=== PATIENT | male | born 1960 | race African-American/Black ===

== ENCOUNTER 2018-05-07 13:04 | Inpatient (IN) | payer MEDICAID, OTHER ==
[~2018-05-07] VITALS: Ht 172.7 cm; Wt 120.7 kg
[2018-05-07] MEDS ORDERED: SODIUM CHLORIDE 0.9% 1,000 ML IV ONE (14:29)
[2018-05-07] MEDS ORDERED: ONDANSETRON HCL 4MG/2ML INJ IV STA (14:29)
[2018-05-07 14:45] LABS: HEMATOCRIT. 45.5 % (42.0-52.0); HEMOGLOBIN. 15.5 g/dL (14.0-18.0); MEAN CORPUSCULAR HEMOGLOBIN 32.2 pg (28.0-32.0); MEAN CORPUSCULAR VOLUME 94.6 fL (80.0-94.0); MEAN PLATELET VOLUME 9.6 fl (7.4-10.4); PLATELET 200 x1000/uL (130-400); RED BLOOD CELL COUNT 4.81 mill/uL (4.7-6.1); RED CELL DISTRIBUTION WIDTH 13.9 % (11.6-14.6)
[2018-05-07 14:48] LABS: INR 1.2; PROTHROMBIN TIME 11.6 sec (9.1-11.1)
[2018-05-07 14:53] LABS: CHLORIDE 100 mEq/L (98-107); ETHANOL BLOOD < 10 mg/dL
[2018-05-07 15:19] LABS: CLARITY URINE CLEAR (CLEAR); COLOR URINE YELLOW (YELLOW); KETONES URINE TRACE (NEGATIVE); LEUKOCYTE ESTERASE URINE NEGATIVE (NEGATIVE); NITRITE URINE NEGATIVE (NEGATIVE); OCCULT BLOOD URINE 2+ (NEGATIVE); PH URINE 5.5 (4.5-8.0); PROTEIN URINE 4+ (NEGATIVE); SPECIFIC GRAVITY URINE 1.017 (1.005-1.030); UROBILINOGEN URINE 0.2 E.U./dL (0.2-1.0)
[2018-05-07] MEDS ORDERED: POTASSIUM CHLORIDE 20MEQ TABLET SR PO ONE (15:30)
[2018-05-07] MEDS ORDERED: FAMOTIDINE 20MG/2ML VIAL IV ONE (15:30)
[2018-05-07] MEDS ORDERED: MAGNESIUM/ALUMINUM HYDROXIDE/SIMETHICONE 30ML UDC PO ONE (15:30)
[2018-05-07 15:34] LABS: PLATELET ESTIMATE NORMAL
[2018-05-07 15:45] LABS: *AMPHETAMINES SCREEN URINE NEGATIVE (NEGATIVE); *BARBITURATES SCREEN URINE NEGATIVE (NEGATIVE); *BENZODIAZEPINES SCREEN URINE NEGATIVE (NEGATIVE); *COCAINE SCREEN URINE NEGATIVE (NEGATIVE)
[2018-05-07 15:47] LABS: CANNABINOID URINE SCREEN NEGATIVE (NEGATIVE); METHADONE URINE SCREEN NEGATIVE (NEGATIVE); OPIATES URINE SCREEN NEGATIVE (NEGATIVE); PHENCYCLIDINE URINE SCREEN NEGATIVE (NEGATIVE)
[2018-05-07] MEDS ORDERED: ONDANSETRON HCL 4MG/2ML INJ IV PRN (16:15)
[2018-05-07 16:43] LABS: CREATINE KINASE MB FRACTION 6.4 ng/mL (0.5-3.6); PHOSPHORUS 2.7 mg/dL (2.5-4.9)
[2018-05-07 20:29] VITALS: BP 197/104
[2018-05-07 20:30] VITALS: BP 197/104
[2018-05-07] MEDS ORDERED: POTASSIUM CHLORIDE 20MEQ TABLET SR PO NR (20:49)
[2018-05-07] MEDS ORDERED: MAGNESIUM 4 G PREMIX 100 ML IV NR (22:00)
[2018-05-07] MEDS ORDERED: DEXTROSE 50% WATER 50ML SYRINGE IV PRN (22:00)
[2018-05-07] MEDS ORDERED: CLONIDINE 0.1MG TABLET PO PRN (22:00)
[2018-05-07] MEDS: DEXT 5%/0.45% NACL KCL 20MEQ/L 1,000 ML IV SCH (22:15)
[2018-05-07] MEDS: AMLODIPINE 10MG TABLET PO SCH (22:15)
[2018-05-07] MEDS: PANTOPRAZOLE SODIUM 40 MG/VIAL IV SCH (22:15)
[2018-05-07] MEDS: GABAPENTIN 300MG CAPSULE PO SCH (22:18)
[2018-05-07] MEDS ORDERED: RISO02 MT (23:38)
[2018-05-07] MEDS ORDERED: HYDR-459 MT (23:38)
[2018-05-07] MEDS ORDERED: METF100P3 MC (23:38)
[2018-05-07] MEDS ORDERED: AMLO10TA80 PO (23:38)
[2018-05-07] MEDS ORDERED: FLUO10CA25 MT (23:38)
[2018-05-07] MEDS ORDERED: ASPI-1159 MT (23:38)
[2018-05-07] MEDS ORDERED: ALLO100T MT (23:38)
[2018-05-07] MEDS ORDERED: GABA-531 MT (23:38)
[2018-05-07] MEDS ORDERED: SIMV5TAB53 MT (23:38)
[2018-05-08] VITALS: BP 155/77
[2018-05-08 04:00] VITALS: BP 145/74
[2018-05-08] MEDS: GABAPENTIN 300MG CAPSULE PO SCH ×3 (05:35→22:01)
[2018-05-08] MEDS: BLOOD SUGAR DIAGNOSTIC STRIP TEST SCH ×4 (06:20→21:00)
[2018-05-08] MEDS: INSULIN LISPRO 100 UNITS/ML SUBCUT SCH ×4 (06:20→21:00)
[2018-05-08 07:44] LABS: BASOPHILS % 0.6 % (0.0-2.0); EOSINOPHILS % 2.9 % (0.0-5.0); HEMATOCRIT. 38.2 % (42.0-52.0); HEMOGLOBIN. 13.2 g/dL (14.0-18.0); MEAN CORPUSCULAR HEMOGLOBIN 32.6 pg (28.0-32.0); MEAN CORPUSCULAR VOLUME 94.2 fL (80.0-94.0); MEAN PLATELET VOLUME 9.9 fl (7.4-10.4); MONOCYTES % 9.6 % (2.0-8.0); NEUTROPHILS % 68.9 % (40.0-76.0); PLATELET 185 x1000/uL (130-400); RED BLOOD CELL COUNT 4.06 mill/uL (4.7-6.1); RED CELL DISTRIBUTION WIDTH 13.6 % (11.6-14.6)
[2018-05-08 08:16] VITALS: BP 147/91
[2018-05-08] MEDS: PANTOPRAZOLE SODIUM 40 MG/VIAL IV SCH ×2 (09:36→16:44)
[2018-05-08] MEDS: AMLODIPINE 10MG TABLET PO SCH (09:36)
[2018-05-08] MEDS: FLUOXETINE HCL 20MG CAPSULE PO SCH (09:36)
[2018-05-08 10:03] LABS: T4 FREE 0.94 ng/dL (0.76-1.46)
[2018-05-08] MEDS ORDERED: POTASSIUM CHLORIDE INJ 40 MEQ in DEXT 5% WATER 250 ML IV SCH ×2 (11:00→15:00)
[2018-05-08 11:50] VITALS: BP 148/78
[2018-05-08 16:42] VITALS: BP 128/85
[2018-05-08] MEDS: SUCRALFATE 1 G/10 ML UDC PO SCH ×2 (16:45→22:01)
[2018-05-08 16:48] LABS: CREATINE KINASE MB FRACTION 3.1 ng/mL (0.5-3.6)
[2018-05-08] MEDS: DEXT 5%/0.45% NACL KCL 20MEQ/L 1,000 ML IV SCH (17:45)
[2018-05-08 20:00] VITALS: BP 136/84
[2018-05-08 23:47] LABS: CREATINE KINASE MB FRACTION 2.3 ng/mL (0.5-3.6)
[2018-05-09] VITALS: BP 143/78
[2018-05-09] MEDS: DEXT 5%/0.45% NACL KCL 20MEQ/L 1,000 ML IV SCH ×3 (00:36→15:13)
[2018-05-09 04:00] VITALS: BP 143/71
[2018-05-09] MEDS: GABAPENTIN 300MG CAPSULE PO SCH ×3 (05:49→21:33)
[2018-05-09] MEDS: INSULIN LISPRO 100 UNITS/ML SUBCUT SCH ×4 (06:11→21:00)
[2018-05-09] MEDS: SUCRALFATE 1 G/10 ML UDC PO SCH ×4 (06:11→21:33)
[2018-05-09] MEDS: BLOOD SUGAR DIAGNOSTIC STRIP TEST SCH ×4 (06:11→21:25)
[2018-05-09 07:50] LABS: INR 1.1; PARTIAL THROMBOPLASTIN TIME 25.2 sec (23.4-31.0); PROTHROMBIN TIME 10.7 sec (9.1-11.1)
[2018-05-09 07:58] LABS: BASOPHILS % 0.8 % (0.0-2.0); EOSINOPHILS % 4.8 % (0.0-5.0); HEMOGLOBIN. 12.7 g/dL (14.0-18.0); MEAN CORPUSCULAR HEMOGLOBIN 32.5 pg (28.0-32.0); MEAN CORPUSCULAR VOLUME 94.4 fL (80.0-94.0); MEAN PLATELET VOLUME 10.1 fl (7.4-10.4); MONOCYTES % 7.6 % (2.0-8.0); NEUTROPHILS % 69.8 % (40.0-76.0); PLATELET 187 x1000/uL (130-400); RED BLOOD CELL COUNT 3.92 mill/uL (4.7-6.1); RED CELL DISTRIBUTION WIDTH 13.8 % (11.6-14.6)
[2018-05-09 08:00] VITALS: BP 135/81
[2018-05-09 08:16] LABS: CHLORIDE 99 mEq/L (98-107)
[2018-05-09 08:45] LABS: CREATINE KINASE 316 IU/L (39-308); CREATINE KINASE MB FRACTION 1.9 ng/mL (0.5-3.6)
[2018-05-09] MEDS: AMLODIPINE 10MG TABLET PO SCH (10:09)
[2018-05-09] MEDS: FLUOXETINE HCL 20MG CAPSULE PO SCH (10:09)
[2018-05-09] MEDS: PANTOPRAZOLE SODIUM 40 MG/VIAL IV SCH ×2 (10:09→17:32)
[2018-05-09] MEDS ORDERED: FENTANYL CITRATE/PF 50MCG/ML 2ML VIAL IV ONE (12:17)
[2018-05-09] MEDS ORDERED: MIDAZOLAM HCL 2 MG/2 ML VIAL IV ONE (12:18)
[2018-05-09] MEDS ORDERED: MIDAZOLAM HCL 5 MG/5 ML VIAL ONE (12:24)
[2018-05-09] MEDS ORDERED: FENTANYL CITRATE/PF 50MCG/ML 2ML VIAL ONE (12:24)
[2018-05-09] MEDS ORDERED: POTASSIUM CHLORIDE 20MEQ TABLET SR PO NR (13:00)
[2018-05-09 16:00] VITALS: BP 163/87
[2018-05-09 20:00] VITALS: BP 152/70
[2018-05-10] VITALS: BP_SYST 139; BP_SYST 158; BP_DIAS 76; BP_DIAS 81
[2018-05-10] MEDS: DEXT 5%/0.45% NACL KCL 20MEQ/L 1,000 ML IV SCH ×3 (01:53→23:06)
[2018-05-10 04:00] VITALS: BP 136/90
[2018-05-10] MEDS: GABAPENTIN 300MG CAPSULE PO SCH ×3 (06:31→23:04)
[2018-05-10] MEDS: SUCRALFATE 1 G/10 ML UDC PO SCH ×4 (06:31→20:55)
[2018-05-10] MEDS: BLOOD SUGAR DIAGNOSTIC STRIP TEST SCH ×4 (06:31→20:55)
[2018-05-10] MEDS: INSULIN LISPRO 100 UNITS/ML SUBCUT SCH ×4 (06:33→20:56)
[2018-05-10 07:34] LABS: HEMATOCRIT 38.3 % (42.0-52.0); MEAN CORPUSCULAR HEMOGLOBIN 32.5 pg (28.0-32.0); MEAN CORPUSCULAR VOLUME 95.4 fL (80.0-94.0); PLATELET 168 x1000/uL (130-400); RED BLOOD CELL COUNT 4.01 mill/uL (4.7-6.1); RED CELL DISTRIBUTION WIDTH 13.5 % (11.6-14.6)
[2018-05-10 08:00] VITALS: BP 134/90
[2018-05-10] MEDS: PANTOPRAZOLE SODIUM 40 MG/VIAL IV SCH ×2 (11:07→16:45)
[2018-05-10] MEDS: AMLODIPINE 10MG TABLET PO SCH (11:07)
[2018-05-10] MEDS: FLUOXETINE HCL 20MG CAPSULE PO SCH (11:07)
[2018-05-10] MEDS ORDERED: REGADENOSON 0.4 MG/5 ML IV NR (15:45)
[2018-05-11] MEDS: GABAPENTIN 300MG CAPSULE PO SCH ×3 (05:10→21:03)
[2018-05-11 05:13] VITALS: BP 144/82
[2018-05-11] MEDS: SUCRALFATE 1 G/10 ML UDC PO SCH ×4 (06:33→20:57)
[2018-05-11] MEDS: BLOOD SUGAR DIAGNOSTIC STRIP TEST SCH ×5 (06:39→20:58)
[2018-05-11] MEDS: INSULIN LISPRO 100 UNITS/ML SUBCUT SCH ×4 (06:40→20:58)
[2018-05-11 08:00] VITALS: BP 115/67
[2018-05-11] MEDS: FLUOXETINE HCL 20MG CAPSULE PO SCH ×2 (09:00→09:27)
[2018-05-11] MEDS: PANTOPRAZOLE SODIUM 40 MG/VIAL IV SCH ×2 (09:27→16:37)
[2018-05-11] MEDS: AMLODIPINE 10MG TABLET PO SCH (09:27)
[2018-05-11] MEDS: DEXT 5%/0.45% NACL KCL 20MEQ/L 1,000 ML IV SCH ×2 (10:27→18:00)
[2018-05-11 12:00] VITALS: BP 116/74
[2018-05-11 16:00] VITALS: BP 144/76
[2018-05-11 20:00] VITALS: BP 128/74
[2018-05-12] VITALS: BP 124/68
[2018-05-12] MEDS: DEXT 5%/0.45% NACL KCL 20MEQ/L 1,000 ML IV SCH (03:50)
[2018-05-12 04:00] VITALS: BP 132/64
[2018-05-12] MEDS: GABAPENTIN 300MG CAPSULE PO SCH ×2 (05:28→14:53)
[2018-05-12] MEDS: SUCRALFATE 1 G/10 ML UDC PO SCH ×2 (06:20→12:05)
[2018-05-12] MEDS: BLOOD SUGAR DIAGNOSTIC STRIP TEST SCH ×2 (06:59→12:04)
[2018-05-12] MEDS: INSULIN LISPRO 100 UNITS/ML SUBCUT SCH ×2 (07:00→12:08)
[2018-05-12 07:30] VITALS: BP 171/96
[2018-05-12] MEDS: AMLODIPINE 10MG TABLET PO SCH (08:06)
[2018-05-12] MEDS: PANTOPRAZOLE SODIUM 40 MG/VIAL IV SCH (08:06)
[2018-05-12] MEDS: FLUOXETINE HCL 20MG CAPSULE PO SCH (08:06)
[2018-05-12] MEDS ORDERED: REGADENOSON 0.4 MG/5 ML IV ONE (08:40)
[2018-05-12 12:26] VITALS: BP 158/80
[2018-05-12 13:40] VITALS: BP 158/80
== END 2018-05-12 15:32 | disposition home or self-care (01) | DRG 241 ==
LOC: ER 13:21 → 8WST 15:46 → EDBEDREQ 15:50 → ENRESERV 19:22
PROVIDERS: ADMIT Internal Medicine; ATTEND Internal Medicine
PROC: 0DB78ZX Excision of Stomach, Pylorus, Via Natural or Artificial Opening Endoscopic, Diagnostic (ICD-10-PCS; principal; 2018-05-09 13:00)
DX: K29.71 Gastritis, unspecified, with bleeding (principal); I50.43 Acute on chronic combined systolic (congestive) and diastolic (congestive) heart failure; N17.9 Acute kidney failure, unspecified; E11.22 Type 2 diabetes mellitus with diabetic chronic kidney disease; M62.82 Rhabdomyolysis; E44.1 Mild protein-calorie malnutrition; E83.42 Hypomagnesemia; K29.81 Duodenitis with bleeding; R04.0 Epistaxis; N18.9 Chronic kidney disease, unspecified; E66.9 Obesity, unspecified; D53.9 Nutritional anemia, unspecified; E78.5 Hyperlipidemia, unspecified; E87.6 Hypokalemia; F10.10 Alcohol abuse, uncomplicated; I13.0 Hypertensive heart and chronic kidney disease with heart failure and stage 1 through stage 4 chronic kidney disease, or unspecified chronic kidney disease; K44.9 Diaphragmatic hernia without obstruction or gangrene; N39.0 Urinary tract infection, site not specified; Z79.899 Other long term (current) drug therapy; Z79.82 Long term (current) use of aspirin; Z68.41 Body mass index [BMI] 40.0-44.9, adult
CPT/HCPCS: 36415; 71045; 78452; 78582; 80048; 80061; 80305; 82550; 82553; 82962; 83036; 83735; 83880; 84100; 84439; 84443; 84484; 85027; 85379; 86850; 86900; 88305; 88313; 93005; 93017; 93306; 93970; 96361; 96374; 96375; 99285; A9500; A9558; C9113; G0482; J2250; J2405; J2785; J3010; J3475; J3480; J3490; J7030; J7060

== ENCOUNTER 2019-11-18 10:30 | Inpatient (IN) | payer MEDICAID, OTHER ==
[~2019-11-18] VITALS: Ht 172.7 cm; Wt 92.8 kg
[~2019-11-18 10:30] MED LIST: ALLO100T MT; AMLO10TA80 PO; ASPI-1497 MT; FLUO10CA25 MT; GABA-531 MT; HYDR-459 MT; METF100P3 MC; RISO02 MT; SIMV5TAB58 MT
[2019-11-18 11:56] LABS: HEMATOCRIT. 33.4 % (42.0-52.0); HEMOGLOBIN. 11.4 g/dL (14.0-18.0); MEAN CORPUSCULAR HEMOGLOBIN 30.6 pg (28.0-32.0); MEAN CORPUSCULAR VOLUME 89.8 fL (80.0-94.0); MEAN PLATELET VOLUME 8.9 fl (7.4-10.4); PLATELET 296 x1000/uL (130-400); RED BLOOD CELL COUNT 3.72 mill/uL (4.7-6.1); RED CELL DISTRIBUTION WIDTH 14.4 % (11.6-14.6)
[2019-11-18 12:05] LABS: CHLORIDE 101 mEq/L (98-107)
[2019-11-18 12:10] LABS: ETHANOL BLOOD < 10 mg/dL
[2019-11-18 12:27] LABS: PLATELET ESTIMATE NORMAL
[2019-11-18] MEDS ORDERED: AZITHROMYCIN 500 MG in DEXT 5% WATER 250 ML IV STA (12:30)
[2019-11-18] MEDS ORDERED: PIPERACILLIN/TAZOBACTAM 3.375GM/50ML PREMIX IV NR (12:30)
[2019-11-18] MEDS ORDERED: VANCOMYCIN 1 G PREMIX 200 ML IV SCH (12:45)
[2019-11-18] MEDS ORDERED: ETOMIDATE 2MG/ML 10ML VIAL IV ONE ×2 (12:59→14:00)
[2019-11-18] MEDS ORDERED: VECURONIUM BROMIDE 10 MG/VIAL IV ONE ×2 (12:59→14:00)
[2019-11-18] MEDS ORDERED: PROPOFOL 10MG/ML 100ML 100 ML IV SCH (13:15)
[2019-11-18] MEDS ORDERED: NITROGLYCERIN 50MG PREMIX 250 ML IV SCH (14:15)
[2019-11-18] MEDS: CLONIDINE 0.1MG TABLET NG SCH (14:30)
[2019-11-18 14:34] LABS: CLARITY URINE CLOUDY (CLEAR); COLOR URINE YELLOW (YELLOW); KETONES URINE NEGATIVE (NEGATIVE); LEUKOCYTE ESTERASE URINE TRACE (NEGATIVE); NITRITE URINE NEGATIVE (NEGATIVE); OCCULT BLOOD URINE 2+ (NEGATIVE); PROTEIN URINE 3+ (NEGATIVE); SPECIFIC GRAVITY URINE 1.014 (1.005-1.030); UROBILINOGEN URINE 0.2 E.U./dL (0.2-1.0)
[2019-11-18 15:30] LABS: BG BASE EXCESS -15.5 mmol/L (-2.0-2.0); BG CARBOXYHEMOGLOBIN 0.1 % (0.5-1.5); BG DEOXYHEMOGLOBIN 12.7 % (0.0-5.0); BG FRACTION INSPIRED OXYGEN 100; BG HCO3 ACT 14.3 mmol/L (22.0-26.0); BG METHEMOGLOBIN 0.2 % (0.0-1.5); BG OXYGEN SATURATION 87.3 % (92.0-98.5); BG PCO2 49.9 mmHg (35.0-45.0); BG PH 7.074 (7.350-7.450); BG PO2 67.7 mmHg (75.0-100.0); BG SAMPLE SITE RIGHT RADIAL; BG TIDAL VOLUME(mL) 500 mL; BG VENT MODE VENT - A/C; BG VENT RATE 24 set
[2019-11-18] MEDS: SODIUM CHLORIDE 0.9% 1,000 ML IV SCH (17:10)
[2019-11-18] MEDS ORDERED: ONDANSETRON HCL 4MG/2ML INJ IV PRN (17:15)
[2019-11-18] MEDS ORDERED: AZITHROMYCIN 500 MG in DEXT 5% WATER 250 ML IV SCH (17:15)
[2019-11-18] MEDS ORDERED: PIPERACILLIN/TAZ 3.375G PREMIX 50 ML IV SCH (17:15)
[2019-11-18] MEDS ORDERED: DIPHENHYDRAMINE 50MG/ML VIAL IV PRN (17:15)
[2019-11-18] MEDS ORDERED: ACETAMINOPHEN 650MG SUPP PR PRN (17:15)
[2019-11-18 17:39] LABS: PHOSPHORUS 4.2 mg/dL (2.5-4.9)
[2019-11-18] MEDS ORDERED: ENOXAPARIN 30MG/0.3ML SYR SUBCUT SCH (19:00)
[2019-11-18] MEDS ORDERED: ASPIRIN 300MG SUPP PR ONE (19:30)
[2019-11-18 22:35] LABS: *AMPHETAMINES SCREEN URINE PRESUMTIVE POSITIVE (NEGATIVE); *BARBITURATES SCREEN URINE NEGATIVE (NEGATIVE); *BENZODIAZEPINES SCREEN URINE NEGATIVE (NEGATIVE); *COCAINE SCREEN URINE PRESUMTIVE POSITIVE (NEGATIVE); METHADONE URINE SCREEN NEGATIVE (NEGATIVE); OPIATES URINE SCREEN NEGATIVE (NEGATIVE)
[2019-11-18 22:36] LABS: CANNABINOID URINE SCREEN NEGATIVE (NEGATIVE); PHENCYCLIDINE URINE SCREEN PRESUMTIVE POSITIVE (NEGATIVE)
[2019-11-18 23:30] LABS: BG BASE EXCESS -11.3 mmol/L (-2.0-2.0); BG CARBOXYHEMOGLOBIN 0.2 % (0.5-1.5); BG DEOXYHEMOGLOBIN 1.8 % (0.0-5.0); BG FRACTION INSPIRED OXYGEN 100; BG HCO3 ACT 14.3 mmol/L (22.0-26.0); BG METHEMOGLOBIN 0.4 % (0.0-1.5); BG OXYGEN SATURATION 98.2 % (92.0-98.5); BG OXYHEMOGLOBIN 97.6 % (94.0-97.0); BG PCO2 31.3 mmHg (35.0-45.0); BG PH 7.279 (7.350-7.450); BG PO2 136.8 mmHg (75.0-100.0); BG SAMPLE SITE RIGHT RADIAL; BG TIDAL VOLUME(mL) 550 mL; BG TOTAL HEMOGLOBIN 10.2 g/dL (12.0-18.0); BG VENT MODE VENT - A/C; BG VENT RATE 24 set
[2019-11-19] VITALS (25 sets, daily range): BP systolic 82–173; BP diastolic 51–112
[2019-11-19] MEDS ORDERED: DEXTROSE 50% WATER 50ML SYRINGE IV SCH (01:30)
[2019-11-19] MEDS ORDERED: SODIUM BICARBONATE 8.4% 1 MEQ/ML 50ML SYR IV SCH (02:30)
[2019-11-19 04:22] LABS: HEMATOCRIT. 25.8 % (42.0-52.0); HEMOGLOBIN. 8.7 g/dL (14.0-18.0); MEAN CORPUSCULAR HEMOGLOBIN 30.4 pg (28.0-32.0); MEAN CORPUSCULAR VOLUME 90.1 fL (80.0-94.0); MEAN PLATELET VOLUME 9.2 fl (7.4-10.4); PLATELET 166 x1000/uL (130-400); RED BLOOD CELL COUNT 2.87 mill/uL (4.7-6.1); RED CELL DISTRIBUTION WIDTH 14.2 % (11.6-14.6)
[2019-11-19 05:42] LABS: PLATELET ESTIMATE NORMAL
[2019-11-19] MEDS ORDERED: PHENYLEPHRINE 10 MG in DEXT 5% WATER 249 ML IV PRN (06:45)
[2019-11-19] MEDS ORDERED: SODIUM BICARBONATE 8.4% 1 MEQ/ML 50ML SYR IV ONE (08:15)
[2019-11-19] MEDS ORDERED: PROPOFOL 10MG/ML 100ML 100 ML IV ONE ×2 (08:27→17:11)
[2019-11-19] MEDS ORDERED: MIDAZOLAM HCL 50 MG in DEXTROSE 5% WATER 40 ML IV ONE (08:30)
[2019-11-19 08:44] LABS: BG BASE EXCESS -10.9 mmol/L (-2.0-2.0); BG CARBOXYHEMOGLOBIN 0.3 % (0.5-1.5); BG DEOXYHEMOGLOBIN 1.9 % (0.0-5.0); BG FRACTION INSPIRED OXYGEN 80; BG HCO3 ACT 14.3 mmol/L (22.0-26.0); BG METHEMOGLOBIN 0.2 % (0.0-1.5); BG OXYGEN SATURATION 98.1 % (92.0-98.5); BG OXYHEMOGLOBIN 97.6 % (94.0-97.0); BG PCO2 29.5 mmHg (35.0-45.0); BG PH 7.303 (7.350-7.450); BG PO2 134.6 mmHg (75.0-100.0); BG SAMPLE SITE RIGHT RADIAL; BG TIDAL VOLUME(mL) 550 mL; BG TOTAL HEMOGLOBIN 9.3 g/dL (12.0-18.0); BG VENT MODE VENT - A/C; BG VENT RATE 28 set
[2019-11-19 10:37] LABS: INR 1.3; PARTIAL THROMBOPLASTIN TIME 32.2 sec (23.4-31.0); PROTHROMBIN TIME 14.1 sec (9.6-11.0)
[2019-11-19] MEDS ORDERED: PHENYLEPHRINE 40 MG in DEXT 5% WATER 246 ML IV PRN (17:45)
[2019-11-19] MEDS ORDERED: IPRATROPIUM/ALBUTEROL 0.5-3(2.5)MG/3ML NEB HHN PRN (18:15)
[2019-11-19] MEDS ORDERED: PROPOFOL 10MG/ML 100ML 100 ML IV PRN (18:15)
[2019-11-19] MEDS: PANTOPRAZOLE SODIUM 40 MG/VIAL IV SCH (18:36)
[2019-11-19] MEDS: PIPERACILLIN/TAZOBACTAM 2.25 G in DEXTROSE 5% WATER 50 ML IV SCH (19:57)
[2019-11-19] MEDS: IPRATROPIUM/ALBUTEROL 0.5-3(2.5)MG/3ML NEB HHN SCH (20:35)
[2019-11-19] MEDS: AZITHROMYCIN 500 MG in DEXT 5% WATER 250 ML IV SCH (21:56)
[2019-11-19] MEDS: CLONIDINE 0.1MG TABLET NG SCH (21:56)
[2019-11-19] MEDS: FENTANYL 1,000 MCG in SODIUM CHLORIDE 0.9% 100 ML IV PRN (23:55)
[2019-11-20] VITALS (69 sets, daily range): BP systolic 87–141; BP diastolic 49–92
[2019-11-20] MEDS: SODIUM CHLORIDE 0.9% 1,000 ML IV SCH (01:52)
[2019-11-20] MEDS: IPRATROPIUM/ALBUTEROL 0.5-3(2.5)MG/3ML NEB HHN SCH ×3 (01:55→21:40)
[2019-11-20] MEDS: CLONIDINE 0.1MG TABLET NG SCH ×3 (05:52→22:00)
[2019-11-20 06:28] LABS: HEMATOCRIT. 23.1 % (42.0-52.0); HEMOGLOBIN. 8.1 g/dL (14.0-18.0); MEAN CORPUSCULAR HEMOGLOBIN 31.2 pg (28.0-32.0); MEAN CORPUSCULAR VOLUME 89.2 fL (80.0-94.0); MEAN PLATELET VOLUME 9.4 fl (7.4-10.4); PLATELET 147 x1000/uL (130-400); RED BLOOD CELL COUNT 2.59 mill/uL (4.7-6.1); RED CELL DISTRIBUTION WIDTH 14.4 % (11.6-14.6)
[2019-11-20 07:25] LABS: BG BASE EXCESS -10.3 mmol/L (-2.0-2.0); BG CARBOXYHEMOGLOBIN 0.3 % (0.5-1.5); BG DEOXYHEMOGLOBIN 7.6 % (0.0-5.0); BG HCO3 ACT 14.3 mmol/L (22.0-26.0); BG METHEMOGLOBIN 0.1 % (0.0-1.5); BG OXYGEN SATURATION 92.4 % (92.0-98.5); BG PH 7.341 (7.350-7.450); BG SAMPLE SITE RIGHT RADIAL; BG VENT MODE VENT - A/C
[2019-11-20 07:41] LABS: CORTISOL 49.1 ucg/dL
[2019-11-20 07:42] LABS: HEPATITIS B SURFACE AB 130.8 mIU/mL
[2019-11-20 07:52] LABS: HEPATITIS B SURFACE ANTIGEN NEGATIVE
[2019-11-20 08:02] LABS: CHLORIDE 99 mEq/L (98-107)
[2019-11-20 08:08] LABS: PHOSPHORUS 6.1 mg/dL (2.5-4.9)
[2019-11-20 08:11] LABS: CREATINE KINASE 79 IU/L (39-308)
[2019-11-20 08:11] LABS: BG VENT RATE 28 set
[2019-11-20 08:12] LABS: BG FRACTION INSPIRED OXYGEN 60; BG PEEP (cmH2O) 5 cmH2O
[2019-11-20 08:13] LABS: BG TIDAL VOLUME(mL) 550 mL
[2019-11-20] MEDS: PIPERACILLIN/TAZOBACTAM 2.25 G in DEXTROSE 5% WATER 50 ML IV SCH ×2 (08:15→19:45)
[2019-11-20] MEDS: PANTOPRAZOLE SODIUM 40 MG/VIAL IV SCH (08:16)
[2019-11-20] MEDS ORDERED: LIDOCAINE HCL 1% 20ML VIAL (Pyxis) INJ ONE ×2 (08:21→09:58)
[2019-11-20 08:56] LABS: PLATELET ESTIMATE NORMAL
[2019-11-20] MEDS: SODIUM BICARBONATE 150 MEQ in DEXTROSE 5% WATER 1,000 ML IV SCH (09:27)
[2019-11-20] MEDS ORDERED: SODIUM BICARBONATE 4% (2.4MEQ) 5ML VIAL IV ONE (09:58)
[2019-11-20] MEDS ORDERED: DEXTROSE 50% WATER 50ML SYRINGE IV PRN (10:45)
[2019-11-20] MEDS: BLOOD SUGAR DIAGNOSTIC STRIP TEST SCH ×2 (11:41→17:28)
[2019-11-20] MEDS: INSULIN LISPRO 100 UNITS/ML SUBCUT SCH ×2 (11:41→17:28)
[2019-11-20] MEDS: PROPOFOL 10MG/ML 100ML 100 ML IV PRN (19:37)
[2019-11-20] MEDS: AZITHROMYCIN 500 MG in DEXT 5% WATER 250 ML IV SCH (19:45)
[2019-11-21] VITALS (59 sets, daily range): BP systolic 102–151; BP diastolic 59–98
[2019-11-21] MEDS: BLOOD SUGAR DIAGNOSTIC STRIP TEST SCH ×4 (00:14→17:42)
[2019-11-21] MEDS: FENTANYL 1,000 MCG in SODIUM CHLORIDE 0.9% 100 ML IV PRN (00:18)
[2019-11-21] MEDS: PROPOFOL 10MG/ML 100ML 100 ML IV PRN ×5 (01:17→19:36)
[2019-11-21] MEDS: IPRATROPIUM/ALBUTEROL 0.5-3(2.5)MG/3ML NEB HHN SCH ×4 (02:09→20:00)
[2019-11-21 05:15] LABS: HIV SCREEN 4G Non Reactive (Non Reactive)
[2019-11-21] MEDS: INSULIN LISPRO 100 UNITS/ML SUBCUT SCH ×4 (05:28→17:42)
[2019-11-21 05:52] LABS: HEMATOCRIT. 21.6 % (42.0-52.0); HEMOGLOBIN. 7.3 g/dL (14.0-18.0); MEAN CORPUSCULAR HEMOGLOBIN 29.8 pg (28.0-32.0); MEAN PLATELET VOLUME 9.5 fl (7.4-10.4); PLATELET 155 x1000/uL (130-400); RED BLOOD CELL COUNT 2.45 mill/uL (4.7-6.1); RED CELL DISTRIBUTION WIDTH 14.8 % (11.6-14.6)
[2019-11-21] MEDS: CLONIDINE 0.1MG TABLET NG SCH ×3 (06:19→22:00)
[2019-11-21 06:24] LABS: PHOSPHORUS 4.8 mg/dL (2.5-4.9)
[2019-11-21 08:10] LABS: PLATELET ESTIMATE NORMAL
[2019-11-21] MEDS: PIPERACILLIN/TAZOBACTAM 2.25 G in DEXTROSE 5% WATER 50 ML IV SCH ×2 (09:00→21:13)
[2019-11-21] MEDS: PANTOPRAZOLE SODIUM 40 MG/VIAL IV SCH (09:00)
[2019-11-21] MEDS: SODIUM BICARBONATE 150 MEQ in DEXTROSE 5% WATER 1,000 ML IV SCH (09:11)
[2019-11-21 09:29] LABS: BG BASE EXCESS -0.6 mmol/L (-2.0-2.0); BG CARBOXYHEMOGLOBIN 0.3 % (0.5-1.5); BG FRACTION INSPIRED OXYGEN 60; BG HCO3 ACT 21.6 mmol/L (22.0-26.0); BG METHEMOGLOBIN 0.3 % (0.0-1.5); BG OXYHEMOGLOBIN 98.4 % (94.0-97.0); BG PCO2 25.9 mmHg (35.0-45.0); BG PH 7.539 (7.350-7.450); BG PO2 243.1 mmHg (75.0-100.0); BG SAMPLE SITE RIGHT RADIAL; BG TIDAL VOLUME(mL) 550 mL; BG TOTAL HEMOGLOBIN 7.6 g/dL (12.0-18.0); BG VENT MODE VENT - A/C; BG VENT RATE 28 set
[2019-11-21] MEDS: FUROSEMIDE 100MG/10ML VIAL IVP SCH (13:41)
[2019-11-21 15:21] LABS: BG BASE EXCESS -2.5 mmol/L (-2.0-2.0); BG CARBOXYHEMOGLOBIN 0.3 % (0.5-1.5); BG DEOXYHEMOGLOBIN 1.9 % (0.0-5.0); BG FRACTION INSPIRED OXYGEN 40; BG HCO3 ACT 21.6 mmol/L (22.0-26.0); BG METHEMOGLOBIN 0.3 % (0.0-1.5); BG OXYGEN SATURATION 98.1 % (92.0-98.5); BG OXYHEMOGLOBIN 97.5 % (94.0-97.0); BG PCO2 33.7 mmHg (35.0-45.0); BG PH 7.424 (7.350-7.450); BG PO2 131.8 mmHg (75.0-100.0); BG SAMPLE SITE RIGHT RADIAL; BG TIDAL VOLUME(mL) 500 mL; BG VENT MODE VENT - A/C; BG VENT RATE 20 set
[2019-11-21] MEDS: AZITHROMYCIN 500 MG in DEXT 5% WATER 250 ML IV SCH (19:32)
[2019-11-22] VITALS (49 sets, daily range): BP systolic 97–154; BP diastolic 32–91
[2019-11-22] MEDS: FENTANYL 1,000 MCG in SODIUM CHLORIDE 0.9% 100 ML IV PRN ×2 (00:12→17:00)
[2019-11-22] MEDS: IPRATROPIUM/ALBUTEROL 0.5-3(2.5)MG/3ML NEB HHN SCH ×4 (01:58→20:19)
[2019-11-22] MEDS: PROPOFOL 10MG/ML 100ML 100 ML IV PRN ×6 (04:28→22:22)
[2019-11-22] MEDS: CLONIDINE 0.1MG TABLET NG SCH ×3 (06:00→21:24)
[2019-11-22] MEDS: BLOOD SUGAR DIAGNOSTIC STRIP TEST SCH ×5 (06:05→23:21)
[2019-11-22 07:24] LABS: HEMOGLOBIN. 8.1 g/dL (14.0-18.0); MEAN CORPUSCULAR VOLUME 88.3 fL (80.0-94.0); MEAN PLATELET VOLUME 9.3 fl (7.4-10.4); PLATELET 172 x1000/uL (130-400); RED CELL DISTRIBUTION WIDTH 14.5 % (11.6-14.6)
[2019-11-22 07:25] LABS: PHOSPHORUS 6.6 mg/dL (2.5-4.9)
[2019-11-22] MEDS: PIPERACILLIN/TAZOBACTAM 2.25 G in DEXTROSE 5% WATER 50 ML IV SCH ×2 (08:02→20:18)
[2019-11-22] MEDS: PANTOPRAZOLE SODIUM 40 MG/VIAL IV SCH (08:03)
[2019-11-22] MEDS: FUROSEMIDE 100MG/10ML VIAL IVP SCH (08:03)
[2019-11-22 09:41] LABS: PLATELET ESTIMATE NORMAL
[2019-11-22 09:50] LABS: BG BASE EXCESS -3.2 mmol/L (-2.0-2.0); BG CARBOXYHEMOGLOBIN 0.3 % (0.5-1.5); BG DEOXYHEMOGLOBIN 1.4 % (0.0-5.0); BG FRACTION INSPIRED OXYGEN 40; BG METHEMOGLOBIN 0.3 % (0.0-1.5); BG OXYGEN SATURATION 98.6 % (92.0-98.5); BG PCO2 28.7 mmHg (35.0-45.0); BG PH 7.462 (7.350-7.450); BG PO2 137.1 mmHg (75.0-100.0); BG SAMPLE SITE RIGHT RADIAL; BG TIDAL VOLUME(mL) 550 mL; BG TOTAL HEMOGLOBIN 7.7 g/dL (12.0-18.0); BG VENT MODE VENT - A/C; BG VENT RATE 20 set
[2019-11-22] MEDS: INSULIN LISPRO 100 UNITS/ML SUBCUT SCH ×4 (12:00→23:21)
[2019-11-22] MEDS ORDERED: AZITHROMYCIN 250 MG in DEXT 5% WATER 250 ML IV SCH (20:00)
[2019-11-23] VITALS (38 sets, daily range): BP systolic 104–186; BP diastolic 59–115
[2019-11-23] MEDS: PROPOFOL 10MG/ML 100ML 100 ML IV PRN ×2 (00:44→05:28)
[2019-11-23] MEDS: IPRATROPIUM/ALBUTEROL 0.5-3(2.5)MG/3ML NEB HHN SCH ×4 (02:10→21:04)
[2019-11-23] MEDS: CLONIDINE 0.1MG TABLET NG SCH ×3 (05:27→22:18)
[2019-11-23] MEDS: INSULIN LISPRO 100 UNITS/ML SUBCUT SCH ×3 (05:27→18:00)
[2019-11-23] MEDS: BLOOD SUGAR DIAGNOSTIC STRIP TEST SCH ×3 (05:27→18:35)
[2019-11-23 06:36] LABS: BASOPHILS % 0.4 % (0.0-2.0); EOSINOPHILS % 5.2 % (0.0-5.0); HEMOGLOBIN. 7.8 g/dL (14.0-18.0); LYMPHOCYTES % 14.3 % (20.0-50.0); MEAN CORPUSCULAR HEMOGLOBIN 30.3 pg (28.0-32.0); MEAN CORPUSCULAR VOLUME 88.6 fL (80.0-94.0); MONOCYTES % 10.1 % (2.0-8.0); PLATELET 168 x1000/uL (130-400); RED BLOOD CELL COUNT 2.59 mill/uL (4.7-6.1); RED CELL DISTRIBUTION WIDTH 14.5 % (11.6-14.6)
[2019-11-23 06:55] LABS: PHOSPHORUS 6.6 mg/dL (2.5-4.9)
[2019-11-23 07:34] LABS: BG BASE EXCESS -0.6 mmol/L (-2.0-2.0); BG CARBOXYHEMOGLOBIN 0.3 % (0.5-1.5); BG DEOXYHEMOGLOBIN 2.1 % (0.0-5.0); BG FRACTION INSPIRED OXYGEN 35; BG HCO3 ACT 23.8 mmol/L (22.0-26.0); BG METHEMOGLOBIN 0.3 % (0.0-1.5); BG OXYGEN SATURATION 97.9 % (92.0-98.5); BG OXYHEMOGLOBIN 97.3 % (94.0-97.0); BG PCO2 37.8 mmHg (35.0-45.0); BG PH 7.417 (7.350-7.450); BG PO2 117.2 mmHg (75.0-100.0); BG SAMPLE SITE RIGHT RADIAL; BG TIDAL VOLUME(mL) 550 mL; BG TOTAL HEMOGLOBIN 8.1 g/dL (12.0-18.0); BG VENT MODE VENT - A/C; BG VENT RATE 16 set
[2019-11-23] MEDS: PIPERACILLIN/TAZOBACTAM 2.25 G in DEXTROSE 5% WATER 50 ML IV SCH ×2 (08:40→20:01)
[2019-11-23] MEDS: PANTOPRAZOLE SODIUM 40 MG/VIAL IV SCH (09:01)
[2019-11-23] MEDS: FUROSEMIDE 100MG/10ML VIAL IVP SCH (09:01)
[2019-11-23 12:36] LABS: BG BASE EXCESS 0.2 mmol/L (-2.0-2.0); BG CARBOXYHEMOGLOBIN 0.3 % (0.5-1.5); BG DEOXYHEMOGLOBIN 1.9 % (0.0-5.0); BG FRACTION INSPIRED OXYGEN 35; BG HCO3 ACT 24.4 mmol/L (22.0-26.0); BG METHEMOGLOBIN 0.1 % (0.0-1.5); BG OXYGEN SATURATION 98.1 % (92.0-98.5); BG OXYHEMOGLOBIN 97.7 % (94.0-97.0); BG PCO2 37.5 mmHg (35.0-45.0); BG PH 7.431 (7.350-7.450); BG PO2 129.7 mmHg (75.0-100.0); BG PRESSURE SUPPORT 8; BG SAMPLE SITE RIGHT RADIAL; BG TOTAL HEMOGLOBIN 8.7 g/dL (12.0-18.0); BG VENT MODE VENT - CPAP
[2019-11-24] VITALS (22 sets, daily range): BP systolic 117–143; BP diastolic 64–86
[2019-11-24] MEDS: IPRATROPIUM/ALBUTEROL 0.5-3(2.5)MG/3ML NEB HHN SCH ×2 (02:26→09:39)
[2019-11-24] MEDS: CLONIDINE 0.1MG TABLET NG SCH (05:38)
[2019-11-24] MEDS: INSULIN LISPRO 100 UNITS/ML SUBCUT SCH ×3 (05:38→11:41)
[2019-11-24] MEDS: BLOOD SUGAR DIAGNOSTIC STRIP TEST SCH ×3 (05:39→11:41)
[2019-11-24] MEDS: FUROSEMIDE 100MG/10ML VIAL IVP SCH (08:12)
[2019-11-24] MEDS: PANTOPRAZOLE SODIUM 40 MG/VIAL IV SCH (08:12)
== END 2019-11-24 12:18 | disposition left against medical advice (07) | DRG 720 ==
LOC: ER 10:30 → CVICU 14:13 → EDBEDREQTM 14:22 → EDBEDREQ 17:55 → ENRESERV 11-19 15:24
PROVIDERS: ADMIT Internal Medicine; ATTEND Internal Medicine
PROC: 5A1955Z Respiratory Ventilation, Greater than 96 Consecutive Hours (ICD-10-PCS; principal; 2019-11-18)
PROC: 0BH17EZ Insertion of Endotracheal Airway into Trachea, Via Natural or Artificial Opening (ICD-10-PCS; 2019-11-18)
PROC: 5A1D70Z Performance of Urinary Filtration, Intermittent, Less than 6 Hours Per Day (ICD-10-PCS; 2019-11-19)
PROC: 02HV33Z Insertion of Infusion Device into Superior Vena Cava, Percutaneous Approach (ICD-10-PCS; 2019-11-20)
PROC: B548ZZA Ultrasonography of Superior Vena Cava, Guidance (ICD-10-PCS; 2019-11-20)
PROC: 5A1D70Z Performance of Urinary Filtration, Intermittent, Less than 6 Hours Per Day (ICD-10-PCS; 2019-11-20)
PROC: 5A1D70Z Performance of Urinary Filtration, Intermittent, Less than 6 Hours Per Day (ICD-10-PCS; 2019-11-22)
DX: A41.9 Sepsis, unspecified organism (principal); I21.4 Non-ST elevation (NSTEMI) myocardial infarction; N17.0 Acute kidney failure with tubular necrosis; R65.21 Severe sepsis with septic shock; J96.01 Acute respiratory failure with hypoxia; J96.02 Acute respiratory failure with hypercapnia; E87.4 Mixed disorder of acid-base balance; K85.90 Acute pancreatitis without necrosis or infection, unspecified; J91.8 Pleural effusion in other conditions classified elsewhere; J15.9 Unspecified bacterial pneumonia; G93.41 Metabolic encephalopathy; N18.4 Chronic kidney disease, stage 4 (severe); E87.1 Hypo-osmolality and hyponatremia; D63.8 Anemia in other chronic diseases classified elsewhere; I16.9 Hypertensive crisis, unspecified; E11.22 Type 2 diabetes mellitus with diabetic chronic kidney disease; F14.10 Cocaine abuse, uncomplicated; F16.129 Hallucinogen abuse with intoxication, unspecified; I27.81 Cor pulmonale (chronic); I31.3 Pericardial effusion (noninflammatory); I42.9 Cardiomyopathy, unspecified; K40.90 Unilateral inguinal hernia, without obstruction or gangrene, not specified as recurrent; K42.9 Umbilical hernia without obstruction or gangrene; K43.9 Ventral hernia without obstruction or gangrene; K74.60 Unspecified cirrhosis of liver; I13.0 Hypertensive heart and chronic kidney disease with heart failure and stage 1 through stage 4 chronic kidney disease, or unspecified chronic kidney disease; Z20.828 Contact with and (suspected) exposure to other viral communicable diseases; I50.43 Acute on chronic combined systolic (congestive) and diastolic (congestive) heart failure; Z53.29 Procedure and treatment not carried out because of patient's decision for other reasons; Z78.1 Physical restraint status; Z79.82 Long term (current) use of aspirin; Z82.49 Family history of ischemic heart disease and other diseases of the circulatory system; Z83.3 Family history of diabetes mellitus; Z87.81 Personal history of (healed) traumatic fracture
CPT/HCPCS: 31500; 36415; 36556; 36600; 71045; 71250; 74176; 76937; 80048; 80053; 80061; 80305; 80320; 81003; 82270; 82330; 82375; 82533; 82550; 82805; 82962; 83036; 83605; 83735; 83880; 84100; 84443; 84478; 84484; 85025; 86592; 86705; 86706; 86803; 87070; 87340; 87389; 87635; 87804; 92610; 93005; 93306; 99291; C1752; C9113; J0456; J1650; J1940; J2250; J2370; J2543; J2704; J3010; J3370; J3490; J7050; J7060; J7070; G0480